=== PATIENT | female | born 1970 | race Caucasian/White ===

== ENCOUNTER 2020-03-14 12:27 | Emergency (ER) | payer BC ==
[2020-03-14] MEDS ORDERED: Triamcinolone Acetonide 40 MG/ML 1 ML MDV INJECT ONE (13:26)
--- NOTE | 2020-03-14 13:34 | EDM.PDOC ---
ED HPI GENERAL MEDICAL PROBLEM - General Chief Complaint: Skin Complaint Stated Complaint: poison audelia Time Seen by Provider: 03/14/20 13:00 Source of Information: Reports: Patient, RN History Limitations: Reports: No Limitations - History of Present Illness INITIAL COMMENTS - FREE TEXT/NARRATIVE: Susan works in the nearby [employer] and was exposed to recently 'weed'whipped' poison audelia 03/10/2020. She has sores on her mouth, nose, left cheek, right wrist and left thigh. She is concerned about the ones on her face due to swelling and close relation to her left eye. She has been using triamcinolone cream but cant apply near eye. She feels the other areas are improving slowly. Onset: Sudden Onset Date: 03/10/20 Onset Time: 12:00 Duration: Day(s):, Constant Location: Reports: Face, Upper Extremity, Right, Lower Extremity, Left. 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 Medication(s) Other Treatments MAIL PROCESSING MACHINE OPERATOR: anit itch cream - Related Data Allergies Allergy/AdvReac Type Severity Reaction Status Date / Time penicillin G Allergy Rash Verified 03/14/20 13:23 Home Meds: Home Meds Cyclobenzaprine [Flexeril] 10 mg PO DAILY PRN 03/14/20 [History] DULoxetine [Cymbalta] 60 mg PO DAILY 03/14/20 [History] Meclizine [Antivert] 12.5 mg PO QID PRN 03/14/20 [History] Naproxen 500 mg PO BID PRN 03/14/20 [History] Triamcinolone Acetonide [Triamcinolone Acetonide 0.5%] 15 gm TRDERM QID PRN 14 Days #1 tube 03/14/20 [Rx] methocarbamoL [Methocarbamol] 750 mg PO TID PRN 03/14/20 [History] norethindrone-e.estradioL-iron [Janey Fe 1-20 Tablet] 1 tab PO DAILY 03/14/20 [History] 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: Musculoskeletal History: Reports: Other (See Below) Other Musculoskeletal History: fibramyalgia, TMJ, chronic myofacial pain Psychiatric History: Reports: Depression - Past Surgical History HEENT Surgical History: Reports: Other (See Below) Other HEENT Surgeries/Procedures: teeth extraction GI Surgical History: Reports: Appendectomy, Other (See Below) Other GI Surgeries/Procedures: exploratory surgery ED ROS GENERAL - Review of Systems Review Of Systems: See Below Constitutional: Reports: No Symptoms HEENT: Reports: No Symptoms Respiratory: Denies: Shortness of Breath, Wheezing Cardiovascular: Reports: Dyspnea on Exertion. Denies: Chest Pain, Blood Pressure Problem Endocrine: Reports: No Symptoms GI/Abdominal: Reports: No Symptoms : Reports: No Symptoms Musculoskeletal: Reports: No Symptoms Skin: Reports: Pruritis, Rash, Erythema, Lesions, Urticaria Neurological: Denies: Confusion, Dizziness, Headache, Numbness, Tingling Psychiatric: Reports: No Symptoms Hematologic/Lymphatic: Reports: No Symptoms Immunologic: Reports: No Symptoms ED EXAM, SKIN/RASH Exam: See Below Text/Narrative:: poison audelia on face, right wrist, & left thigh Exam Limited By: No Limitations General Appearance: Alert, WD/WN, No Apparent Distress Eye Exam: Bilateral Eye: PERRL Ears: Normal External Exam, Normal Canal, Hearing Grossly Normal Nose: Normal Inspection, Normal Mucosa, No Blood, Other (red raised side of left nostril with pustules) Throat/Mouth: Normal Teeth, Normal Gums, Normal Oropharynx, Normal Voice, No Airway Compromise. No: Normal Lips (red raised left upper lip with pustules) Head: Atraumatic, Facial Swelling (greater on the left side due to more poison audelia exposure) Neck: Normal Inspection, Supple, Non-Tender, Full Range of Motion Respiratory/Chest: No Respiratory Distress, Lungs Clear, Normal Breath Sounds, No Accessory Muscle Use Cardiovascular: Normal Peripheral Pulses, Regular Rate, Rhythm, No Edema, No Gallop, No JVD, No Murmur, No Rub GI/Abdominal: Normal Bowel Sounds, Soft Back Exam: Normal Inspection, Full Range of Motion Extremities: Normal Inspection, Normal Range of Motion, No Pedal Edema, Normal Capillary Refill, Redness (lesion on right ankle) Neurological: Alert, Oriented, CN II-XII Intact, Normal Cognition, Normal Gait, Normal Reflexes, No Motor/Sensory Deficits Psychiatric: Normal Affect, Normal Mood Skin: Warm, Dry, Erythema, Rash (poison audelia, left face, right wist and ankle, left thigh) Location, Skin: Face, Upper Extremity, Right, Lower Extremity, Right, Lower Extremity, Left Characteristics: Papular, Vesicular, Erythematous Associated features: Warmth, Inflammation, Weeping Course - Vital Signs Text/Narrative:: Dx: poison audelia - NO labs or xrays In house administration: Kenalog IM 40 mg RX:Triamcinolone 0.5% topical Education removing source (oils for the plant) wash all clothing exposed to the poison audelia, sheets if not showered prior to sleeping in them, wash anything that may have been in contact with the poison audelia and its oil that you would likely have repeat contact with. Trim nails to prevent infection from scratching. Last Recorded V/S: Last Vital Signs Temp 36.6 C 03/14/20 13:19 Pulse 92 03/14/20 13:19 Resp 16 03/14/20 13:19 BP 122/66 03/14/20 13:19 Pulse Ox 97 03/14/20 13:19 - Orders/Labs/Meds Meds: Medications Discontinued Medications Generic Name Dose Route Start Last Admin Trade Name Freq PRN Reason Stop Dose Admin Triamcinolone Acetonide 40 mg 03/14/20 13:26 03/14/20 13:29 Kenalog-40 INJECT 03/14/20 13:27 40 mg ONETIME ONE Administration Departure - Departure Time of Disposition: 13:50 Disposition: Home, Self-Care 01 Condition: Good Clinical Impression: Contact dermatitis due to poison audelia - Discharge Information *PRESCRIPTION DRUG MONITORING PROGRAM REVIEWED*: No *COPY OF PRESCRIPTION DRUG MONITORING REPORT IN PATIENT IDNORA: No Prescriptions: Triamcinolone Acetonide [Triamcinolone Acetonide 0.5%] 15 gm TRDERM QID PRN 14 Days #1 tube PRN Reason: Rash Instructions: Poison Audelia Dermatitis, Rash, Adult, Poison Audelia Dermatitis, [id number], Triamcinolone injection Referrals: PCP,None [Primary Care Provider] - Forms: ED Department Discharge Sepsis Event Note (ED) - Evaluation Sepsis Screening Result: No Definite Risk - Focused Exam Vital Signs: Vital Signs Temp Pulse Resp BP Pulse Ox 03/14/20 13:19 36.6 C 92 16 122/66 97
== END 2020-03-14 13:50 | disposition home or self-care (01) ==
LOC: LB.ED 12:27
DX: L23.7 Allergic contact dermatitis due to plants, except food (principal); F32.9 Major depressive disorder, single episode, unspecified; Z79.899 Other long term (current) drug therapy; Z88.0 Allergy status to penicillin
CPT/HCPCS: 96374; 99282-25; 99283; J3301

== ENCOUNTER 2023-02-28 20:10 | Emergency (ER) | payer BC ==
[2023-02-28] MEDS ORDERED: Diphtheria/Tetanus Toxoids,Adult (Td) 0.5 ML SDV IM ONE (21:14)
[2023-02-28] MEDS ORDERED: Ciprofloxacin 500 MG Tab ONE (21:30)
[2023-02-28] MEDS ORDERED: Bacitracin Oint 1 GM U/D Packet TOP ONE (21:52)
== END 2023-02-28 21:40 | disposition home or self-care (01) ==
LOC: LB.ED 20:10
DX: S61.451A Open bite of right hand, initial encounter (principal); J45.909 Unspecified asthma, uncomplicated; Z79.899 Other long term (current) drug therapy; Z88.0 Allergy status to penicillin; W55.01XA Bitten by cat, initial encounter
CPT/HCPCS: 90471; 90714; 99283-25; A9270-GY